=== PATIENT | female | born 1990 | race Caucasian/White ===

== ENCOUNTER 2020-02-17 08:38 | Emergency (ER) | payer SELFPAY ==
[2020-02-17 09:17] LABS: Basophils % (Auto) 0.4 % (0.0-1.8); Eosinophils % (Auto) 0.4 % (0.0-4.3); Hematocrit 36.4 % (30.3-42.9); Hemoglobin 11.6 gm/dl (10.1-14.3); Lymphocytes # (Auto) 1.5 K/mm3 (1.2-5.4); Lymphocytes % (Auto) 13.4 % (13.4-35.0); Mean Corpuscular HGB Conc 32 % (30-34); Mean Corpuscular Volume 79 fl (79-97); Monocytes # (Auto) 0.6 K/mm3 (0.0-0.8); Monocytes % (Auto) 5.8 % (0.0-7.3); Platelet Count 329 K/mm3 (140-440); Red Blood Count 4.61 M/mm3 (3.65-5.03); Red Cell Distribution Width 16.4 % (13.2-15.2)
[2020-02-17 09:37] LABS: Alanine Aminotransferase 14 units/L (7-56); Albumin 3.8 g/dL (3.9-5); BUN/Creatinine Ratio 10; Blood Urea Nitrogen 6 mg/dL (7-17); Calcium 8.9 mg/dL (8.4-10.2); Hemolysis Index 3
[2020-02-17] MEDS ORDERED: IBUPROFEN 600 MG TAB PO ONE (11:27)
[2020-02-17] MEDS ORDERED: ACETAMINOPHEN 325 MG TAB PO ONE (11:27)
--- NOTE | 2020-02-17 11:32 | Emergency Department Report ---
- General Chief complaint: Abdominal Pain Stated complaint: PAIN Time Seen by Provider: 02/17/20 11:05 Source: patient Mode of arrival: Ambulatory Limitations: No Limitations - History of Present Illness Initial comments: Patient is a 29-year-old female presents emergency room with complaints of erythema to the lower abdomen that began a week ago. She states initially it was just near the mons pubis region and was itching. She states over the last couple of days the redness is now present to the lower abdomen. She states it has increased warmth. She states that she has chills but denies any fever. She states that she also has a mild headache but has not taken anything for it. She denies any drainage or openings. She denies any vomiting, diarrhea, urinary symptoms, abnormal vaginal discharge or irritation, neck stiffness, vision changes, numbness, weakness. No past medical history. No allergies to medications. Last menstrual cycle 2 weeks ago. - Related Data Previous Rx's Medication Instructions Recorded Last Taken Type Acyclovir [Zovirax Cap] 200 mg PO 5XD #50 cap 11/23/14 Unknown Rx metroNIDAZOLE [Flagyl TAB] 500 mg PO Q12HR #14 tab 11/23/14 Unknown Rx Sulfamethoxazole/Trimethoprim 1 each PO BID 7 Days #14 tablet 02/17/20 Unknown Rx [Bactrim DS TAB] Terbinafine [LamiSIL At 1%] 1 applicatio TP BID 7 Days #1 tube 02/17/20 Unknown Rx Allergies Allergy/AdvReac Type Severity Reaction Status Date / Time No Known Allergies Allergy Unverified 11/23/14 11:54 Abscess Boil HPI - HPI Chief Complaint: Abdominal Pain Stated Complaint: PAIN Time Seen by Provider: 02/17/20 11:05 Home Medications: Previous Rx's Medication Instructions Recorded Last Taken Type Acyclovir [Zovirax Cap] 200 mg PO 5XD #50 cap 11/23/14 Unknown Rx metroNIDAZOLE [Flagyl TAB] 500 mg PO Q12HR #14 tab 11/23/14 Unknown Rx Sulfamethoxazole/Trimethoprim 1 each PO BID 7 Days #14 tablet 02/17/20 Unknown Rx [Bactrim DS TAB] Terbinafine [LamiSIL At 1%] 1 applicatio TP BID 7 Days #1 tube 02/17/20 Unknown Rx Allergies/Adverse Reactions: Allergies Allergy/AdvReac Type Severity Reaction Status Date / Time No Known Allergies Allergy Unverified 11/23/14 11:54 ED Review of Systems ROS: Stated complaint: PAIN Other details as noted in HPI Comment: All other systems reviewed and negative ED Past Medical Hx - Past Medical History Previous Medical History?: No - Surgical History Past Surgical History?: No - Social History Smoking Status: Current Every Day Smoker Substance Use Type: Alcohol - Medications Home Medications: Home Medications Medication Instructions Recorded Confirmed Last Taken Type Acyclovir [Zovirax Cap] 200 mg PO 5XD #50 cap 11/23/14 Unknown Rx metroNIDAZOLE [Flagyl TAB] 500 mg PO Q12HR #14 tab 11/23/14 Unknown Rx Sulfamethoxazole/Trimethoprim 1 each PO BID 7 Days #14 tablet 02/17/20 Unknown Rx [Bactrim DS TAB] Terbinafine [LamiSIL At 1%] 1 applicatio TP BID 7 Days #1 tube 02/17/20 Unknown Rx ED Physical Exam - General Limitations: No Limitations General appearance: alert, in no apparent distress - Head Head exam: Present: atraumatic, normocephalic - Eye Eye exam: Present: normal appearance - ENT ENT exam: Present: mucous membranes moist - Respiratory Respiratory exam: Absent: respiratory distress, accessory muscle use - GI/Abdominal GI/Abdominal exam: Present: soft, other (value engineer: SUNNY cortés, there is mild erythema and scaling present in the intertrigo region, there is also scaling present in the pannus region, there is a 4 cm area of erythema inferior to the umbilicus, no fluctuance, no openings, no necrosis, no drainage, no raised area of induration). Absent: distended, tenderness, guarding, rebound, rigid - Neurological Exam Neurological exam: Present: alert, oriented X3 - Psychiatric Psychiatric exam: Present: normal affect, normal mood - Skin Skin exam: Present: warm, dry ED Course Vital Signs 02/17/20 02/17/20 02/17/20 08:45 08:49 11:44 Temperature 98.7 F Pulse Rate 89 Respiratory 16 18 Rate Blood Pressure 99/59 [Right] O2 Sat by Pulse 98 Oximetry 02/17/20 11:47 Temperature Pulse Rate 84 Respiratory 18 Rate Blood Pressure 110/72 [Right] O2 Sat by Pulse 99 Oximetry ED Medical Decision Making - Lab Data Result diagrams: 02/17/20 08:59 02/17/20 08:59 Lab Results 02/17/20 02/17/20 02/17/20 Range/Units 08:59 08:59 09:12 WBC 11.0 (4.5-11.0) K/mm3 RBC 4.61 (3.65-5.03) M/mm3 Hgb 11.6 (10.1-14.3) gm/dl Hct 36.4 (30.3-42.9) % MCV 79 (79-97) fl MCH 25 L (28-32) pg MCHC 32 (30-34) % RDW 16.4 H (13.2-15.2) % Plt Count 329 (140-440) K/mm3 Lymph % (Auto) 13.4 (13.4-35.0) % [place] % (Auto) 5.8 (0.0-7.3) % Eos % (Auto) 0.4 (0.0-4.3) % Baso % (Auto) 0.4 (0.0-1.8) % Lymph # (Auto) 1.5 (1.2-5.4) K/mm3 [place] # (Auto) 0.6 (0.0-0.8) K/mm3 Eos # (Auto) 0.0 (0.0-0.4) K/mm3 Baso # (Auto) 0.0 (0.0-0.1) K/mm3 Seg Neutrophils % 80.0 H (40.0-70.0) % Seg Neutrophils # 8.8 H (1.8-7.7) K/mm3 Sodium 137 (137-145) mmol/L Potassium 3.6 (3.6-5.0) mmol/L Chloride 103.0 (98-107) mmol/L Carbon Dioxide 25 (22-30) mmol/L Anion Gap 13 mmol/L BUN 6 L (7-17) mg/dL Creatinine 0.6 (0.6-1.2) mg/dL Estimated GFR > 60 ml/min BUN/Creatinine Ratio 10 % Glucose 114 H (65-100) mg/dL Calcium 8.9 (8.4-10.2) mg/dL Total Bilirubin 0.60 (0.1-1.2) mg/dL AST 15 (5-40) units/L ALT 14 (7-56) units/L Alkaline Phosphatase 75 (35-129) units/L Total Protein 7.0 (6.3-8.2) g/dL Albumin 3.8 L (3.9-5) g/dL Albumin/Globulin Ratio 1.2 % Urine Color Yellow (Yellow) Urine Turbidity Clear (Clear) Urine pH 6.0 (5.0-7.0) Ur Specific [place] 1.006 (1.003-1.030) Urine Protein <15 mg/dl (Negative) mg/dL Urine Glucose (UA) Neg (Negative) mg/dL Urine Ketones Neg (Negative) mg/dL Urine Blood Neg (Negative) Urine Nitrite Neg (Negative) Ur Reducing Substances Not Reportable Urine Bilirubin Neg (Negative) Urine Ictotest Not Reportable Urine Urobilinogen < 2.0 (<2.0) mg/dL Ur Leukocyte Esterase Neg (Negative) Urine WBC (Auto) 5.0 (0.0-6.0) /HPF Urine RBC (Auto) 1.0 (0.0-6.0) /HPF U Epithel Cells (Auto) 2.0 (0-13.0) /HPF Urine Bacteria (Auto) 1+ (Negative) /HPF Urine Mucus Few /HPF Urine HCG, Qual Negative (Negative) Vital Signs 02/17/20 02/17/20 02/17/20 08:45 08:49 11:44 Temperature 98.7 F Pulse Rate 89 Respiratory 16 18 Rate Blood Pressure 99/59 [Right] O2 Sat by Pulse 98 Oximetry 02/17/20 11:47 Temperature Pulse Rate 84 Respiratory 18 Rate Blood Pressure 110/72 [Right] O2 Sat by Pulse 99 Oximetry - Medical Decision Making Patient is a 29-year-old female presents emergency room with complaints of erythema to the lower abdomen that began a week ago. She states initially it was just near the mons pubis region and was itching. She states over the last couple of days the redness is now present to the lower abdomen. She states it has increased warmth. She states that she has chills but denies any fever. She states that she also has a mild headache but has not taken anything for it. She denies any drainage or openings. She denies any vomiting, diarrhea, urinary symptoms, abnormal vaginal discharge or irritation, neck stiffness, vision changes, numbness, weakness. No past medical history. No allergies to me dications. Last menstrual cycle 2 weeks ago. VSS. on exam: value engineer: SUNNY cortés, there is mild erythema and scaling present in the intertrigo region, there is also scaling present in the pannus region, there is a 4 cm area of erythema inferior to the umbilicus, no fluctuance, no openings, no necrosis, no drainage, no raised area of induration. Examination appears consistent with tinea corporis which has now become secondarily infected causing cellulitis. Labs/urine ordered prior to my examination and are stable. UA is within normal limits. Urine is negative. Patient given prescription for Bactrim and terbinafine. discussed the importance of reexamination in 2 days, discussed very strict return precautions. Advised patient Please use medication as prescribed. May take Tylenol or ibuprofen for any discomfort. Please keep areas dry and avoid leaving moisture in those regions. Please have area reexamined within the next 2 days. It is very important that you have the area reexamined. Return to emergency room immediately for any new or worsening symptoms including but not limited to worsening swelling, worsening redness, worsening pain, fever, vomiting, etc. Critical care attestation.: If time is entered above; I have spent that time in minutes in the direct care of this critically ill patient, excluding procedure time. ED Disposition Clinical Impression: Tinea cruris, Tinea corporis Cellulitis Qualifiers: Site of cellulitis: trunk Site of cellulitis of trunk: abdominal wall Qualified Code(s): L03.311 - Cellulitis of abdominal wall Disposition: DC-01 TO HOME OR SELFCARE Is pt being admited?: No Does the pt Need Aspirin: No Condition: Stable Instructions: Cellulitis, Adult, Jock Itch, Abdominal Pain (ED) Additional Instructions: Please use medication as prescribed. May take Tylenol or ibuprofen for any discomfort. Please keep areas dry and avoid leaving moisture in those regions. Please have area reexamined within the next 2 days. It is very important that you have the area reexamined. Return to emergency room immediately for any new or worsening symptoms including but not limited to worsening swelling, worsening redness, worsening pain, fever, vomiting, etc. [facility] Address: [address] [place] [address], [place] [address] Prescriptions: Sulfamethoxazole/Trimethoprim [Bactrim DS TAB] 1 each PO BID 7 Days #14 tablet Terbinafine [LamiSIL At 1%] 1 applicatio TP BID 7 Days #1 tube Referrals: EDITH ESPARZA MD [Staff Physician] - 2-3 Days [facility] [Provider Group] - 2-3 Days [facility], [LAB/CONTRACT] - 2-3 Days Time of Disposition: 11:31 Print Language: IVORIAN
[2020-02-17 11:49] VITALS: BP 110/72
[2020-02-17 13:08] LABS: Bacteria,Urine 1+ /HPF (Negative); Bilirubin,Urine NEG (Negative); Blood,Urine NEG (Negative); Color,Urine Yellow (Yellow); Mucus,Urine FEW /HPF; Protein,Urine <15 mg/dL mg/dL (Negative); Urobilinogen,Urine < 2.0 mg/dL (<2.0)
[2020-02-17 13:14] LABS: HCG Qualitative,Urine Negative (Negative)
== END 2020-02-17 11:52 | disposition home or self-care (01) ==
LOC: ED 08:38
DX: B35.6 Tinea cruris (principal); B35.4 Tinea corporis; L03.311 Cellulitis of abdominal wall; F17.200 Nicotine dependence, unspecified, uncomplicated; Z79.899 Other long term (current) drug therapy
CPT/HCPCS: 36415; 80053; 81001; 81025; 85025; 99283